=== PATIENT | female | born 1950 | race Two or more races ===

== ENCOUNTER 2017-12-17 19:54 | Emergency (ER) | payer MEDICARE, OTHER ==
[~2017-12-17] VITALS: Ht 162.6 cm; Wt 61.7 kg
[~2017-12-17 19:54] MED LIST: FISH OIL PO; VITAMIN D PO; VITAMIN E PO
[2017-12-17] MEDS ORDERED: CRESTOR 10 MG (20:24)
--- NOTE | 2017-12-17 20:25 | NUR ---
RICKY GUERRERO AT BEDSIDE FOR MSE.
[2017-12-17] MEDS ORDERED: MORPHINE SULFATE 2 MG/1 ML DISP.SYRIN IV ONE (20:30)
[2017-12-17] MEDS ORDERED: IV NORMAL SALINE 500 ML BAG IV ONE (20:30)
[2017-12-17] MEDS ORDERED: ONDANSETRON 4 MG/2 ML VIAL IV ONE (20:30)
--- NOTE | 2017-12-17 20:31 | NUR ---
Pt c/o severe, cramping abdominal pain x1 day. States she feels nauseated, but denies vomiting.
[2017-12-17] MEDS ORDERED: ONDANSETRON 4 MG/2 ML VIAL ONE (20:54)
[2017-12-17] MEDS ORDERED: MORPHINE SULFATE 4 MG/1 ML DISP.SYRIN ONE (20:54)
[2017-12-17 21:08] LABS: BASOPHILS # (AUTO) 0.1 K/uL (0.0-8.0); BASOPHILS % (AUTO) 0.6 % (0.0-2.0); EOSINOPHILS # (AUTO) 0.1 K/uL (0.0-0.7); EOSINOPHILS % (AUTO) 0.6 % (0.0-7.0); HEMATOCRIT 36.9 % (31.2-41.9); HEMOGLOBIN 12.5 g/dL (10.9-14.3); LYMPHOCYTES # (AUTO) 2.4 K/uL (20.0-40.0); LYMPHOCYTES % (AUTO) 21.5 % (20.5-51.5); MEAN CORPUSCULAR HEMOGLOBIN 29.7 uug (24.7-32.8); MEAN CORPUSCULAR HGB CONC 34 g/dL (32.3-35.6); MONOCYTES # (AUTO) 0.7 K/uL (2.0-10.0); MONOCYTES % (AUTO) 6.6 % (0.0-11.0); NEUTROPHILS # (AUTO) 7.9 K/uL (1.8-8.9); NEUTROPHILS % (AUTO) 70.7 % (38.5-71.5); PLATELET COUNT (AUTO) 247 K/uL (179-408); WHITE BLOOD COUNT (AUTO) 11.2 K/uL (3.8-11.8)
--- NOTE | 2017-12-17 21:08 | NUR ---
[facility] AT BEDSIDE FOR DRAW.
[2017-12-17 21:18] LABS: CREATININE 0.7 mg/dL (0.6-1.3); POTASSIUM 3.7 mmol/L (3.5-5.1)
[2017-12-17 21:24] LABS: BILIRUBIN,DIRECT 0.2 mg/dL (0.0-0.2); BILIRUBIN,TOTAL 0.6 mg/dL (0.2-1.0); TOTAL PROTEIN, SERUM 7.2 g/dL (6.4-8.2)
--- NOTE | 2017-12-17 21:55 | NUR ---
PT TAKEN DOWN FOR CT. VSS. NO ACUTE SIGNS OF DISTRESS.
[2017-12-17 22:46] LABS: *BILIRUBIN,URIN NEGATIVE (NEGATIVE); *BLOOD, URINE 1+ (NEGATIVE); *CLARITY,URINE CLOUDY (CLEAR); *COLOR,URINE YELLOW (YELLOW); *KETONES,URINE NEGATIVE (NEGATIVE); *PROTEIN,URINE NEGATIVE (NEGATIVE); *UROBILINOGEN,URINE 0.2 E.U./dl (NORMAL); LEUKOCYTE ESTERASE ,URINE 3+ (NEGATIVE); NITRITE, URINE NEGATIVE (NEGATIVE); PH,URINE 5.5 (5.0-8.0); UGLUCOSE NEGATIVE (NEGATIVE)
[2017-12-17 23:08] LABS: WBC,URINE 80-100 /HPF (0-3)
[2017-12-17 23:09] LABS: BACTERIA,URINE MANY /HPF (NONE SEEN); MUCUS,URINE FEW /LPF (0-FEW); SQUAMOUS EPITHELIAL CELL,UR MANY /HPF (NONE SEEN)
[2017-12-17] MEDS ORDERED: KETOROLAC TROMETHAMINE 30 MG INJ IM ONE (23:15)
[2017-12-17] MEDS ORDERED: HYDROCODONE/APAP 10-325 MG TABLET PO ONE (23:15)
--- NOTE | 2017-12-17 23:24 | NUR ---
Patient discharged to home in stable conditon. Written and verbal after care instructions given. Patient verbalizes understanding of instructions. IV removed, w/ catheter intact. no bleeding noted at site. Heat pack proided for comfort. Ambulated from ER w/ steady gait. No distress notes. Pt took all personal belongings.
[2017-12-17] MEDS ORDERED: KETOROLAC TROMETHAMINE 30 MG INJ ONE (23:39)
[2017-12-17] MEDS ORDERED: HYDROCODONE/APAP 10-325 MG TABLET ONE (23:40)
[2017-12-18 00:24] VITALS: BP 110/62
== END 2017-12-17 23:24 | disposition home or self-care (01) ==
LOC: ER 19:56
DX: K57.32 Diverticulitis of large intestine without perforation or abscess without bleeding (principal)
CPT/HCPCS: 36415; 83690; 85025; A4663; J1885; J2270; J2405; J7040

== ENCOUNTER 2018-02-18 11:01 | Emergency (ER) | payer MEDICARE, OTHER ==
[~2018-02-18] VITALS: Ht 152.4 cm; Wt 61.2 kg
[~2018-02-18 11:01] MED LIST changes: +CRESTOR 10 MG
[2018-02-18] MEDS ORDERED: TETRACAINE HCL 0.5% OPHT DROP 2 ML BOTTLE OP ONE (11:27)
[2018-02-18] MEDS ORDERED: FLUORESCEIN SODIUM 1 MG STRIP OP ONE (11:27)
[2018-02-18] MEDS ORDERED: TETRACAINE HCL 0.5% OPHT DROP 2 ML BOTTLE ONE (11:28)
[2018-02-18] MEDS ORDERED: FLUORESCEIN SODIUM 1 MG STRIP ONE (11:29)
--- NOTE | 2018-02-18 11:58 | NUR ---
LT eye irrigated w/ NS per MD order, pt states her eye feels better and not as uncomfortable.
[2018-02-18] MEDS ORDERED: CIPROFLOXACIN 0.3% OPHT OINT 3.5 GM TUBE LEFTEYE SCH ×2 (12:00→12:22)
[2018-02-18] MEDS ORDERED: CIPROFLOXACIN 0.3% OPHT DROP 2.5 ML BOTTLE ONE (12:05)
[2018-02-18 12:38] VITALS: BP 111/58
--- NOTE | 2018-02-18 12:41 | NUR ---
Patient discharged to home in stable conditon. Written and verbal after care instructions given. Patient verbalizes understanding of instructions.
[2018-02-18] MEDS ORDERED: CIPROFLOXACIN 0.3% OPHT DROP 2.5 ML BOTTLE LEFTEYE ONE (12:45)
== END 2018-02-18 12:41 | disposition home or self-care (01) ==
LOC: ER 11:01
DX: H10.9 Unspecified conjunctivitis (principal); Z79.899 Other long term (current) drug therapy
CPT/HCPCS: A4663; J3490